=== PATIENT | female | born 1990 | race African-American/Black ===

== ENCOUNTER 2018-08-23 14:19 | Emergency (ER) | payer SELFPAY ==
--- NOTE | 2018-08-23 14:42 | ER Document Report ---
HPI - HPI Time Seen by Provider: 08/23/18 14:41 Pain Level: 5 Notes: 28-year-old female presents to the ED for evaluation of "feeling like I am hearing under water" and congestion for the last 2-3 days. Denies any fevers or chills. Has not tried any ulkv-[id number]-[id number] medication. States she did have a issue with seasonal allergies in the past but stopped taking Benadryl because it "did not seem to work anymore". Eating and drinking without issues. Patient states she "could not work at [employer] today because I can't hear great". denies issues with blood pressure in the past, she is not sure why her blood pressure is elevated today. denies fevers, chills, chest pain,palpitations, shortness of breath, dyspnea, nausea, vomiting, diarrhea, abdominal pain, hematuria,blurred vision, double vision, loss of vision, speech changes, LH, dizziness, syncope, headaches, wheezing, ST, URI, neck pain, weakness, bowel or bladder dysfunction, saddle anesthesia, numbness or tingling in bilateral upper or lower extremities equally, muscle paralysis, weakness in bilateral upper or lower extremities equally or rash. Denies IV drug use. - REPRODUCTIVE Reproductive: DENIES: : Past Medical History - General Information source: Patient - Social History Smoking Status: Unknown if Ever Smoked Family History: Reviewed & Not Pertinent Vertical Provider Document - CONSTITUTIONAL Agree With Documented VS: Yes Notes: PHYSICAL EXAMINATION: GENERAL: Well-appearing, well-nourished and in no acute distress. HEAD: Atraumatic, normocephalic. EYES: Pupils equal round and reactive to light, extraocular movements intact, conjunctiva are normal. ENT: TM intact with bilateral serous effusion, no erythema. Nares boggy bilaterally, oropharynx with erythema without exudates. Moist mucous membranes. NECK: Normal range of motion, supple without lymphadenopathy LUNGS: Breath sounds clear to auscultation bilaterally and equal. No wheezes rales or rhonchi. HEART: Regular rate and rhythm without murmurs ABDOMEN: Soft, nontender, nondistended abdomen. No guarding, no rebound. No masses appreciated. Female : deferred Musculoskeletal: Normal range of motion, no pitting or edema. No cyanosis. NEUROLOGICAL: Cranial nerves grossly intact. Normal speech, normal gait. Normal sensory, motor exams PSYCH: Normal mood, normal affect. SKIN: Warm, Dry, normal turgor, no rashes or lesions noted. - INFECTION CONTROL TRAVEL OUTSIDE OF THE [place] IN LAST 30 DAYS: No Course - Re-evaluation Re-evalutation: 08/23/18 14:52 28-year-old female afebrile slightly hypertensive for evaluation of ear pain. Patient has middle ear chronic effusion, no otitis media. Discussed with patient that she needs to start taking antihistamine as well as Flonase, blow her nose, wash your hands regularly. We are in the beginning of pollen season, it is important that patient does take a daily antihistamine.Your symptoms are likely due to a virus. However, it is important that you continue to monitor for any concerning symptoms including inability to tolerate oral fluids, less than 2 urinations in a 24 hour period, and lethargy. drink fluids, ou may also provide a medication such as ibuprofen (Motrin) or acetaminophen (Tylenol) per box instructions for fever. Please also follow-up with your pcp within 1- 2 days - Vital Signs Vital signs: Temp Pulse Resp BP Pulse Ox 98.2 F 89 18 149/117 H 98 08/23/18 14:25 08/23/18 14:25 08/23/18 14:25 08/23/18 14:25 08/23/18 14:25 Discharge - Discharge Clinical Impression: Chronic otitis media with effusion, bilateral Hypertension Qualifiers: Hypertension type: unspecified Qualified Code(s): I10 - Essential (primary) hypertension Condition: Stable Disposition: HOME, SELF-CARE Instructions: Antihistamines ([facility]), High Blood Pressure ([facility]), Non-Sedating Prescription Antihistamine ([facility]), OTC Antihistamines ([facility]) Additional Instructions: Antihistamines An antihistamine has been prescribed to control your symptoms. Antihistamines are used for many reasons, including itching, watering eyes, runny nose, allergic swelling, hives, and insect stings. Antihistamines may cause drowsiness, especially with the first dose. Do not operate machinery or drive while under the effects of the medication. Other common side effects include dry mouth and eyes. In older persons, antihistamines can occasionally cause urinary retention, constipation, and trouble focusing the eyes. Do not combine the medication with alcohol, or with any other medication without talking to your doctor. You have fluid in your middle ear and it should be air, take antihistamines daily as well as Flonase to help rid your middle ear of fluid blow your nose regularly. Increase oral hydration. We are in the beginning of pollen season, your allergies are aggravated. Return immediately for any new or worsening symptoms. Follow up with primary care provider, call tomorrow to make followup appointment. Prescriptions: Fluticasone Propionate [Flonase Nasal [place] 50 Mcg/[place] 16 gm] 1 spray NASL Q12 #1 bottle Loratadine [Claritin] 10 mg PO DAILY #20 tablet Forms: Return to Work Referrals: NAZ BENJAMIN MD [[employer]] - Follow up in 3-5 days
[2018-08-23 15:08] VITALS: BP 137/93
== END 2018-08-23 15:02 | disposition home or self-care (01) ==
LOC: ER 14:19
DX: H65.493 Other chronic nonsuppurative otitis media, bilateral (principal)
CPT/HCPCS: 99282

== ENCOUNTER 2019-07-01 18:12 | Emergency (ER) | payer SELFPAY ==
[2019-07-01] MEDS ORDERED: IBUPROFEN 800 MG TABLET PO ONE (18:51)
--- NOTE | 2019-07-01 18:55 | ER Document Report ---
HPI - HPI Patient complains to provider of: headache, body aches Time Seen by Provider: 07/01/19 18:47 Onset: Last week Onset/Duration: Persistent Quality of pain: Achy Pain Level: 3 Context: 29-year-old female with history of asthma presents to the emergency department with complaints of headache body aches since last Wednesday. Denies fever vomiting diarrhea. Did not receive the flu vaccine. Denies abdominal pain denies pain with void. She reports she took acmr-lzo-ldeoxlv cough cold medicine without relief of symptoms. Associated Symptoms: Body/muscle aches, Headache Exacerbated by: Denies Relieved by: Denies Similar symptoms previously: No Recently seen / treated by doctor: No - REPRODUCTIVE Reproductive: DENIES: : Past Medical History - General Information source: Patient Last Menstrual Period: May - Social History Smoking Status: Current Every Day Smoker Cigarette use (# per day): Yes Frequency of alcohol use: None Drug Abuse: None Occupation: [employer] Family History: Reviewed & Not Pertinent Patient has suicidal ideation: No Patient has homicidal ideation: No Pulmonary Medical History: Reports: Hx Asthma Renal/ Medical History: Denies: Hx Peritoneal Dialysis Surgical Hx: Negative Vertical Provider Document - CONSTITUTIONAL Agree With Documented VS: Yes Exam Limitations: No Limitations General Appearance: WD/WN, No Apparent Distress - Nontoxic looking - INFECTION CONTROL TRAVEL OUTSIDE OF THE [place] IN LAST 30 DAYS: No - HEENT HEENT: Atraumatic, Normal ENT Exam, Normocephalic, PERRLA. negative: Conjuctival Injection, Pharyngeal Erythema, Tympanic Membrane Red, Tympanic Membrane Bulging - NECK Neck: Normal Inspection, Supple. negative: Lymphadenopathy-Left, Lymphadenopathy-Right - RESPIRATORY Respiratory: Breath Sounds Normal, No Respiratory Distress - CARDIOVASCULAR Cardiovascular: Regular Rate, Regular Rhythm - GI/ABDOMEN Gastrointestinal: Abdomen Soft, Abdomen Non-Tender - MUSCULOSKELETAL/EXTREMETIES Musculoskeletal/Extremeties: MAEW, FROM - NEURO Level of Consciousness: Awake, Alert, Appropriate Motor/Sensory: No Motor Deficit - DERM Integumentary: Warm, Dry Course - Re-evaluation Re-evalutation: 07/01/19 19:38 Negative flu test. Patient was instructed on this instructed on push fluids take Tylenol Motrin as indicated for pain follow-up with primary care provider. Laboratory 07/01/19 18:53 Influenza A (Rapid) NEGATIVE Influenza B (Rapid) NEGATIVE - Vital Signs Vital signs: Temp Pulse Resp BP Pulse Ox 98.2 F 86 18 143/92 H 99 07/01/19 18:24 07/01/19 18:24 07/01/19 18:24 07/01/19 18:24 07/01/19 18:24 Discharge - Discharge Clinical Impression: Headache, Body aches Condition: Stable Disposition: HOME, SELF-CARE Instructions: Headache ([facility]), Use of Wape-Frc-Zfswqsv Ibuprofen ([facility]) Additional Instructions: *You have been evaluated for body aches *Your flu test was negative *Monitor temperature take Tylenol or Motrin as indicated *Push fluids *Wash her hands well *Follow up with a primary care provider within 1 week for recheck *Return to ED for worsening condition, changes, needs Monitor your blood pressure. Your blood pressure was elevated today. This may be because you were anxious, in pain or because you need medication. It is important to follow up with your primary care provider for full evaluation. Forms: Elevated Blood Pressure, Return to Work
[2019-07-01 19:22] LABS: A TYPE INFLUENZA AG NEGATIVE (NEGATIVE); B INFLUENZA AG NEGATIVE (NEGATIVE)
[2019-07-01 21:02] VITALS: BP 138/88
== END 2019-07-01 21:03 | disposition home or self-care (01) ==
LOC: ER 18:12
DX: R51 Headache (principal); M79.10 Myalgia, unspecified site; R05 Cough; F17.210 Nicotine dependence, cigarettes, uncomplicated; J45.909 Unspecified asthma, uncomplicated
CPT/HCPCS: 87804; 99284

== ENCOUNTER 2019-11-03 22:41 | Emergency (ER) | payer SELFPAY ==
[2019-11-03 23:20] VITALS: BP 138/88
[2019-11-03] MEDS ORDERED: PENICILLIN V POTASSIUM 500 MG TABLET PO ONE (23:23)
[2019-11-03] MEDS ORDERED: NAPROXEN 250 MG TABLET PO ONE (23:24)
[2019-11-03] MEDS ORDERED: HYDROCODONE/ACETAMINOPHEN 5-325 MG TABLET PO ONE (23:24)
--- NOTE | 2019-11-03 23:25 | ER Document Report ---
ED General - General Chief Complaint: Toothache Stated Complaint: TOOTH PAIN/SWELLING Time Seen by Provider: 11/03/19 23:20 Notes: CHIEF COMPLAINT: Dental pain for 3 to 4 days HPI: 29-year-old female presenting to the emergency department complaining dental pain left upper molars for the last 3 to 4 days. No fever. Has taken qwey-rte-fipjjaz medications for symptoms. Has not seen a dentist ROS: See HPI - all other systems were reviewed and are otherwise negative Constitutional: no fever Eyes: no drainage, no blurred vision ENT: no runny nose, no sore throat, positive dental pain Integumentary: no rash Allergy: no hives MEDICATIONS: I agree with the patient medications as charted by the RN. ALLERGIES: I agree with the allergies as charted by the RN. PAST MEDICAL HISTORY/PAST SURGICAL HISTORY: Reviewed and agree as charted by RN. SOCIAL HISTORY: Reviewed and agree as charted by RN. FAMILY HISTORY: No significant familial comorbid conditions directly related to patient complaint EXAM: Reviewed vital signs as charted by RN. CONSTITUTIONAL: Alert and oriented and responds appropriately to questions. Well-appearing; well-nourished HEAD: Normocephalic; atraumatic EYES: PERRL; Conjunctivae clear, sclerae non-icteric ENT: normal nose; no rhinorrhea; moist mucous membranes; pharynx without lesions noted, no uvula edema or deviation, no tonsillar hypertrophy, phonation normal dentition is relatively intact there is dental caries noted to the left upper first premolar and third molar. No gingival edema. No sublingual swelling. No trismus. No facial swelling. NECK: Supple without meningismus; non-tender; no cervical lymphadenopathy, no masses CARD: Capillary refill less than 3 seconds RESP: Normal chest excursion without splinting or tachypnea ABD/GI: non-distendeds. BACK: The back appears normal EXT: Normal ROM in all joints; no cyanosis, no effusions, no edema SKIN: Normal color for age and race; warm; dry; good turgor NEURO: Moves all extremities equally; Motor and sensory function intact PSYCH: The patient's mood and manner are appropriate. Grooming and personal hygiene are appropriate. MDM: 29-year-old female with dental pain for several days. Does have dental caries. I did review the patient on the [place] narcotics database without finding significant recent injury. Will place patient on a short course of antibiotics and pain medication refer to dental TRAVEL OUTSIDE OF THE [place] IN LAST 30 DAYS: No - Related Data Allergies/Adverse Reactions: No Known Allergies Allergy (Verified 07/01/19 18:41) Home Medications: Inhalers Past Medical History - Social History Smoking Status: Never Smoker Frequency of alcohol use: None Drug Abuse: None Family History: Reviewed & Not Pertinent Patient has homicidal ideation: No Pulmonary Medical History: Reports: Hx Asthma Renal/ Medical History: Denies: Hx Peritoneal Dialysis Physical Exam - Vital signs Vitals: Temp 99.0 F 11/03/19 23:18 Course - Vital Signs Vital signs: Temp Pulse Resp BP Pulse Ox 99.0 F 86 18 138/88 H 99 11/03/19 23:18 11/03/19 23:19 11/03/19 23:19 11/03/19 23:19 11/03/19 23:19 Discharge - Discharge Clinical Impression: Pain due to dental caries Condition: Stable Disposition: HOME, SELF-CARE Additional Instructions: 1. Take the medications as prescribed, if you were written antibiotics make sure that you finish them. 2. You need to follow up with a dentist for definitive evaluation and care of your dental problems 3. return to the ED for any facial swelling, fever > 101, difficulty swallowing or opening the mouth. 4. You may attempt to follow up with the [facility] for further care as well as through the dental list provided. 5. you may want to consider a dental discount plan such as [email or web address] to help with costs of dental care as you do not have dental insurance Prescriptions: Tramadol HCl [Ultram 50 mg Tablet] 50 mg PO Q4HP PRN #12 tab PRN Reason: Naproxen 500 mg PO BID PRN #14 tablet PRN Reason: Penicillin V Potassium [Penicillin Vk 500 mg Tablet] 500 mg PO BID #20 tablet
== END 2019-11-03 23:41 | disposition home or self-care (01) ==
LOC: ER 22:41
DX: K02.9 Dental caries, unspecified (principal)
CPT/HCPCS: 99282